=== PATIENT | female | born 1970 | race Caucasian/White ===

== ENCOUNTER 2021-01-08 10:24 | Emergency (ER) | payer BC ==
[~2021-01-08] VITALS: Ht 160 cm; Wt 65.9 kg
--- NOTE | 2021-01-08 11:07 | RAD ---
XR CHEST 1V CLINICAL INDICATIONS: Chest pain COMPARISON: April 28, 2016. Findings: No acute lung infiltrate or pleural effusion or pulmonary edema or lung mass or pneumothora x is seen. The heart size, pulmonary vasculature, mediastinum and both rebecca are unremarkable. IMPRESSION: No acute radiographic abnormality is seen. Electronically signed by: Agusto Coleman MD (01/08/2021 11:05 AM) [id number]
[2021-01-08 11:17] LABS: BASO % 0 % (0-3); EOS % 0 % (0-3); HEMATOCRIT 39.4 % (36.0-47.0); HEMOGLOBIN 13.4 g/dL (12.0-15.5); LYMPH # 1.4 x10^3/uL (1.0-4.8); LYMPH % 17 % (24-48); MEAN CORPUSCULAR HEMOGLOBIN 34 pg (25-35); MEAN CORPUSCULAR HGB CONC 34 g/dL (31-37); MEAN CORPUSCULAR VOLUME 99 fL (79-100); MONO # 0.7 x10^3/uL (0.0-1.1); MONO % 9 % (0-9); NEUT % 74 % (31-73); PLATELET COUNT 279 x10^3/uL (140-400); RED BLOOD COUNT 3.98 x10^6/uL (3.50-5.40); RED CELL DISTRIBUTION WIDTH 15.1 % (11.5-14.5); WHITE BLOOD COUNT 8.1 x10^3/uL (4.0-11.0)
[2021-01-08 11:26] LABS: CREATININE 0.9 mg/dL (0.6-1.0)
--- NOTE | 2021-01-08 11:29 | RAD ---
EXAM: Head CT without contrast. HISTORY: Dizziness. Imbalance. TECHNIQUE: Computed tomographic images of the head were obtained without contrast. *One or more of the following individualized dose reduction techniques were utilized for this examina tion: 1. Automated exposure control. 2. Adjustment of the mA and/or kV according to patient size. 3. Use of iterative reconstruction technique. COMPARISON: None. FINDINGS: There is no acute or subacute extra-axial or intraparenchymal hemorrhage. There is no mass effect or midline shift. There is no hydrocephalus. The garcia-white matter differentiation pattern is intact. The visualized portions of the orbits, paranasal sinuses and mastoid air cells are unremarkable. No s uspicious calvarial lesion is seen. IMPRESSION: No acute intracranial findings. Electronically signed by: Olimpia Becker MD (01/08/2021 11:27 AM) [id number]
[2021-01-08 11:31] LABS: ALBUMIN 3.6 g/dL (3.4-5.0); ALBUMIN/GLOBULIN RATIO 1.1 (1.0-1.7); TOTAL BILIRUBIN 0.4 mg/dL (0.2-1.0)
--- NOTE | 2021-01-08 12:05 | PHYS DOC ---
Past Medical History Past Medical History: Anxiety, Bipolar, Endometriosis, Kidney Infection, Kidney Stone, UTI, Other Additional Past Medical Histor: panic attacks, pcos Past Surgical History: Hysterectomy, Other Additional Past Surgical Histo: OVARIAN CYST, KIDNEY SX, FINGER Smoking Status: Current Every Day Smoker Alcohol Use: Heavy Drug Use: Benzodiazepine, Opiates General Adult EDM: Chief Complaint: DIZZY/LIGHT HEADED HPI: HPI: Patient is a 50 year old female who presented to ER due to cough congestion, chest pain, dizziness, headache for 1 month. Patient denies any injury. Patient said all the symptoms started after she had her Covid vaccine the initial shot. She is scheduled for her second dose tomorrow. Denies any fever. Patient denies any recent travel or operation. Patient had history of anxiety and bipolar disorder. Patient is a smoker. Patient denies any history of coronary disease, denies history of diabetic. She denies history of blood clot disorder. Review of Systems: Review of Systems: Constitutional: Denies fever or chills. [] Eyes: Denies change in visual acuity. [] HENT: Denies nasal congestion or sore throat. [] Respiratory: Positive for cough and trouble] Cardiovascular: Positive for chest pain and trouble GI: Denies abdominal pain, nausea, vomiting, bloody stools or diarrhea. [] : Denies dysuria. [] Musculoskeletal: Denies back pain or joint pain. [] Integument: Denies rash. [] Neurologic: Positive for headache, dizziness, no focal weakness or numbness Endocrine: Denies polyuria or polydipsia. [] Lymphatic: Denies swollen glands. [] Psychiatric: Denies depression or anxiety. [] Heart Score: C/O Chest Pain: Yes HEART Score for Chest Pain: HEART Score for Chest Pain Response (Comments) Value History Slighlty/Non-Suspicious 0 ECG Normal 0 Age >45 - < 65 1 Risk Factors 1 or 2 Risk Factors 1 Troponin < Normal Limit 0 Total 2 Risk Factors: Risk Factors: DM, Current or recent (<one month) smoker, HTN, HLP, family history of CAD, obesity. Risk Scores: Score 0 - 3: 2.5% MACE over next 6 weeks - Discharge Home Score 4 - 6: 20.3% MACE over next 6 weeks - Admit for Clinical Observation Score 7 - 10: 72.7% MACE over next 6 weeks - Early Invasive Strategies Allergies: Allergies: Allergies Coded Allergies Type Severity Reaction Last Updated Verified aspirin Allergy Intermediate 04/28/16 Yes Physical Exam: PE: Constitutional: Well developed, well nourished, no acute distress, non-toxic appearance. [] HENT: Normocephalic, atraumatic, bilateral external ears normal, oropharynx moist, no oral exudates, nose normal. Right TM appears to be more inflamed compared to L left TM Eyes: PERRLA, EOMI, conjunctiva normal, no discharge. [] Neck: Normal range of motion, no tenderness, supple, no stridor. [] Cardiovascular:Heart rate regular rhythm, no murmur [] Lungs & Thorax: Bilateral breath sounds clear to auscultation [] Abdomen: Bowel sounds normal, soft, no tenderness, no masses, no pulsatile masses. [] Skin: Warm, dry, no erythema, no rash. [] Back: No tenderness, no CVA tenderness. [] Extremities: No tenderness, no cyanosis, no clubbing, ROM intact, no edema. [] Neurologic: Alert and oriented X 3, normal motor function, normal sensory function, no focal deficits noted. [] Psychologic: Affect normal, judgement normal, mood normal. [] Current Patient Data: Labs: Laboratory Tests Test 01/08/21 11:06 White Blood Count 8.1 x10^3/uL (4.0-11.0) Red Blood Count 3.98 x10^6/uL (3.50-5.40) Hemoglobin 13.4 g/dL (12.0-15.5) Hematocrit 39.4 % (36.0-47.0) Mean Corpuscular Volume 99 fL (79-100) Mean Corpuscular Hemoglobin 34 pg (25-35) Mean Corpuscular Hemoglobin Concent 34 g/dL (31-37) Red Cell Distribution Width 15.1 % (11.5-14.5) H Platelet Count 279 x10^3/uL (140-400) Neutrophils (%) (Auto) 74 % (31-73) H Lymphocytes (%) (Auto) 17 % (24-48) L Monocytes (%) (Auto) 9 % (0-9) Eosinophils (%) (Auto) 0 % (0-3) Basophils (%) (Auto) 0 % (0-3) Neutrophils # (Auto) 6.0 x10^3/uL (1.8-7.7) Lymphocytes # (Auto) 1.4 x10^3/uL (1.0-4.8) Monocytes # (Auto) 0.7 x10^3/uL (0.0-1.1) Eosinophils # (Auto) 0.0 x10^3/uL (0.0-0.7) Basophils # (Auto) 0.0 x10^3/uL (0.0-0.2) Sodium Level 137 mmol/L (136-145) Potassium Level 4.0 mmol/L (3.5-5.1) Chloride Level 98 mmol/L (98-107) Carbon Dioxide Level 26 mmol/L (21-32) Anion Gap 13 (6-14) Blood Urea Nitrogen 17 mg/dL (7-20) Creatinine 0.9 mg/dL (0.6-1.0) Estimated GFR (Cockcroft-Gault) 66.0 BUN/Creatinine Ratio 19 (6-20) Glucose Level 96 mg/dL (70-99) Calcium Level 9.0 mg/dL (8.5-10.1) Magnesium Level 2.0 mg/dL (1.8-2.4) Total Bilirubin 0.4 mg/dL (0.2-1.0) Aspartate Amino Transferase (AST) 69 U/L (15-37) H Alanine Aminotransferase (ALT) 49 U/L (14-59) Alkaline Phosphatase 93 U/L (46-116) Troponin I Quantitative < 0.017 ng/mL (0.000-0.055) TC-Fwp-G-Type Natriuretic Peptide 15 pg/mL (0-124) Total Protein 7.0 g/dL (6.4-8.2) Albumin 3.6 g/dL (3.4-5.0) Albumin/Globulin Ratio 1.1 (1.0-1.7) Lipase 121 U/L (73-393) Laboratory Tests 01/08/21 11:06 Laboratory Tests 01/08/21 11:06 Vital Signs: Vital Signs Date Time Temp Pulse Resp B/P (MAP) Pulse Ox O2 Delivery O2 Flow Rate FiO2 01/08/21 10:41 98.0 80 16 140/82 (101) 97 Room Air 98.0 EKG: EKG: EKG was done at 1045, heart rate 81 bpm, sinus rhythm, no ST segment elevation. Incomplete right bundle branch block. Radiology/Procedures: Radiology/Procedures: [][facility] [address] [place] [address] IMAGING REPORT Signed PATIENT: BLAS SCHULTZ ACCOUNT: [id number] : 1970 LOCATION: ER AGE: 50 SEX: F EXAM STATUS: REG ER ORD. PHYSICIAN: PRACHI JEREZ DO REASON: CHEST PAIN, DIZZINESS, SOA PROCEDURE: CT ANGIOGRAPHY CHEST EXAM: CT angiography of the chest with intravenous contrast. HISTORY: Dizziness. TECHNIQUE: Computed tomographic images of the chest were obtained following the administration of intravenous contrast according to angiography protocol. Multiplanar reformatting was performed and three dimensional maximum intensity projection images were obtained. *One or more of the following individualized dose reduction techniques were utilized for this examination: 1. Automated exposure control. 2. Adjustment of the mA and/or kV according to patient size. 3. Use of iterative reconstruction technique. COMPARISON: None. FINDINGS: There is no evidence of pulmonary embolism. The aorta is normal in caliber. There is no aortic dissection. The heart is normal in size. There is an anterior mediastinal nodule measuring 9 mm, likely a prominent lymph node. The remainder of the mediastinal and hilar lymph nodes are unremarkable. There is no pneumothorax or pleural effusion. There is a right greater than left posterior dependent and basilar atelectasis. There is mild biapical predominant emphysema. There is linear atelectasis or scarring within the medial right middle lobe. There is no suspicious pulmonary nodule. There is suspected hepatomegaly. There is a small cyst or fatty infiltration adjacent the gallbladder fossa, partially included on the [id number]. There is no acute finding involving the upper abdomen. There is an incidental accessory left renal artery. There is callus formation surrounding a healing nondisplaced posterior left ninth rib fracture IMPRESSION: 1. No evidence of pulmonary embolism or alternative acute pulmonary finding. 2. Subacute appearing nondisplaced posterior left ninth rib fracture. 3. 9 mm nodule within the anterior mediastinum, the appearance of which favors a lymph node. This may be physiologic or reactive in etiology. No additional suspicious lymph node is seen. 4. Pulmonary emphysema. Electronically signed by: Olimpia Leon MD (01/08/2021 12:26 PM) [id number] DICTATED and SIGNED BY: OLIMPIA LEON MD DATE: 01/08/21 [id number] [facility] [address] [place] [address] IMAGING REPORT Signed PATIENT: BLAS SCHULTZ ACCOUNT: [id number] : 1970 LOCATION: ER AGE: 50 SEX: F EXAM STATUS: REG ER ORD. PHYSICIAN: PRACHI JEREZ DO REASON: DIZZINESS, ABNORMAL BALANCE PROCEDURE: CT HEAD WO CONTRAST EXAM: Head CT without contrast. HISTORY: Dizziness. Imbalance. TECHNIQUE: Computed tomographic images of the head were obtained without contrast. *One or more of the following individualized dose reduction techniques were utilized for this examination: 1. Automated exposure control. 2. Adjustment of the mA and/or kV according to patient size. 3. Use of iterative reconstruction technique. COMPARISON: None. FINDINGS: There is no acute or subacute extra-axial or intraparenchymal hemorrhage. There is no mass effect or midline shift. There is no hydrocephalus. The garcia-white matter differentiation pattern is intact. The visualized portions of the orbits, paranasal sinuses and mastoid air cells are unremarkable. No suspicious calvarial lesion is seen. IMPRESSION: No acute intracranial findings. Electronically signed by: Olimpia Leon MD (01/08/2021 11:27 AM) [id number] DICTATED and SIGNED BY: OLIMPIA LEON MD DATE: 01/08/21 [id number] 0 Course & Med Decision Making: Course & Med Decision Making Pertinent Labs and Imaging studies reviewed. (See chart for details) [] Dragon Disclaimer: Dragrichard Disclaimer: This electronic medical record was generated, in whole or in part, using a voice recognition dictation system. Departure Departure Impression: Primary Impression: Chest pain Additional Impressions: Left rib fracture Otitis media Disposition: 01 HOME / SELF CARE / HOMELESS Condition: STABLE Referrals: NAYELY BOWLES DO (PCP) FOLLOW UP WITH YOUR DOCTOR NEEDED NEXT WEEK Patient Instructions: Chest Pain (Nonspecific), Otitis Media, Adult, Rib Fracture Additional Instructions: Thank you for visiting our Emergency Department. We appreciate you trusting us with your care. If any additional problems come up don't hesitate to return to visit us. Please follow up with your primary care provider so they can plan additional care if needed and know about the problem that you had. If symptoms worsen come back to the Emergency Department. Any concerning symptoms that start such as chest pain, shortness of air, weakness or numbness on one side of the body, running high fevers or any other concerning symptoms return to the ER. Scripts Amoxicillin/Potassium Clav (AUGMENTIN 875-125 TABLET) 1 Each Tablet 1 TAB PO BID for 10 Days, #20 TAB 0 Refills Prov: PRACHI JEREZ DO 01/08/21 PRACHI JEREZ DO Jan 08, 2021 12:05
[2021-01-08] MEDS ORDERED: CONTRAST GIVEN. MC PRN (12:15)
[2021-01-08] MEDS ORDERED: IOHEXOL 350 MG/ML 100 ML VIAL. IV ONE (12:15)
--- NOTE | 2021-01-08 12:28 | RAD ---
EXAM: CT angiography of the chest with intravenous contrast. HISTORY: Dizziness. TECHNIQUE: Computed tomographic images of the chest were obtained following the administration of int ravenous contrast according to angiography protocol. Multiplanar reformatting was performed and three dimensional maximum intensity projection images were obtained. *One or more of the following individualized dose reduction techniques were utilized for this examina tion: 1. Automated exposure control. 2. Adjustment of the mA and/or kV according to patient size. 3. Use of iterative reconstruction technique. COMPARISON: None. FINDINGS: There is no evidence of pulmonary embolism. The aorta is normal in caliber. There is no aor tic dissection. The heart is normal in size. There is an anterior mediastinal nodule measuring 9 mm, likely a prominent lymph node. The remainder of the mediastinal and hilar lymph nodes are unremarkabl e. There is no pneumothorax or pleural effusion. There is a right greater than left posterior dependent and basilar atelectasis. There is mild biapical predominant emphysema. There is linear atelectasis or scarring within the medial right middle lobe. There is no suspicious pulmonary nodule. There is suspected hepatomegaly. There is a small cyst or fatty infiltration adjacent the gallbladder fossa, partially included on the [id number]. There is no acute finding involving the upper abdome n. There is an incidental accessory left renal artery. There is callus formation surrounding a healin g nondisplaced posterior left ninth rib fracture IMPRESSION: 1. No evidence of pulmonary embolism or alternative acute pulmonary finding. 2. Subacute appearing nondisplaced posterior left ninth rib fracture. 3. 9 mm nodule within the anterior mediastinum, the appearance of which favors a lymph node. This may be physiologic or reactive in etiology. No additional suspicious lymph node is seen. 4. Pulmonary emphysema. Electronically signed by: Olimpia Becker MD (01/08/2021 12:26 PM) [id number]
[2021-01-08 13:00] VITALS: BP 136/82
[2021-01-08] MEDS ORDERED: fentaNYL PF VIAL 100 MCG/2 ML VIAL IVP ONE (13:00)
[2021-01-08] MEDS ORDERED: AMOX1TAB61 PO (13:39)
--- NOTE | 2021-01-08 18:14 | EKG ---
[facility] [address] [place] [address] Test Date: 2021-01-08 Test Time: 10:43:51 Pat Name: BLAS SCHULTZ Department: Room: Gender: F [employer]: TRACEE : 1970 Requested By: PRACHI JEREZ Order Number: [id number] Reading MD: Measurements Intervals [place] Rate: 81 P: 54 IA: 182 QRS: 2 QRSD: 102 T: 8 QT: 360 QTc: 424 Interpretive Statements SINUS RHYTHM LEFT ATRIAL ABNORMALITY INCOMPLETE RIGHT BUNDLE BRANCH BLOCK QRS(T) CONTOUR ABNORMALITY CONSIDER ANTEROLATERAL MYOCARDIAL DAMAGE ABNORMAL ECG RI6.01 No previous ECG available for comparison
== END 2021-01-08 13:39 | disposition home or self-care (01) ==
LOC: ER 10:24
DX: S22.32XA Fracture of one rib, left side, initial encounter for closed fracture (principal); H66.93 Otitis media, unspecified, bilateral; R42 Dizziness and giddiness; F31.9 Bipolar disorder, unspecified; F17.200 Nicotine dependence, unspecified, uncomplicated; F10.20 Alcohol dependence, uncomplicated; Y90.9 Presence of alcohol in blood, level not specified; Z88.6 Allergy status to analgesic agent; X58.XXXA Exposure to other specified factors, initial encounter; Y93.89 Activity, other specified; Y92.89 Other specified places as the place of occurrence of the external cause; Y99.8 Other external cause status
CPT/HCPCS: 36415; 70450; 71045; 71275; 80053; 83690; 83735; 83880; 84484; 85025; 93005; 96374; 99285; J3010; Q9967